=== PATIENT | female | born 1940 | race Caucasian/White ===

== ENCOUNTER 2018-05-18 09:08 | Emergency (ER) | payer MEDICARE ==
[2018-05-18] MEDS ORDERED: Ketorolac Tromethamine 30 MG/ML VIAL ONE (10:32)
[2018-05-18] MEDS ORDERED: Methocarbamol 500 MG TAB PO SCH (10:45)
== END 2018-05-18 11:16 | disposition home or self-care (01) ==
LOC: ERS 09:08
DX: M54.16 Radiculopathy, lumbar region (principal); E11.9 Type 2 diabetes mellitus without complications; M19.90 Unspecified osteoarthritis, unspecified site; I10 Essential (primary) hypertension; E78.5 Hyperlipidemia, unspecified
CPT/HCPCS: 96372; J1885